=== PATIENT | male | born 1935 | race Caucasian/White ===

== ENCOUNTER 2018-12-08 10:39 | Emergency (ER) | payer MEDICARE ==
[~2018-12-08] VITALS: Ht 182.9 cm; Wt 85.3 kg
--- OUTSIDE RECORDS SUMMARY | 2018-12-08 10:41 | XMS REPORT | Summary of Care ---
Author Author [facility] Organization [facility] Address Unknown Phone Unavailable Care Team Providers Care Assistant Librarian Name Role Phone Salvatore Orantes PCP Encounter HQ Encntr_cassi(FIN) [id number] Date(s): 09/01/18 - 09/01/18 [facility] [address] [address]- [phone] Discharge Disposition: Home or Self Care Attending Physician: Blaine Diaz MD Vital Signs No data available for this section Problem List Condition Effective Dates Status Health Status Informant Hematuria(Confirmed) Active Cataract(Confirmed) Resolved Depression(Confirmed Resolved ) Diaphragmatic Resolved hernia(Confirmed) Gout(Confirmed) Resolved Hydronephrosis(Confi Active rmed) HTN Resolved (hypertension)(Confi rmed) Lymphoma(Confirmed) Active Sleep Resolved apnea(Confirmed) Allergies, Adverse Reactions, Alerts Substance Reaction Severity Status acetaminophen-codeine Active Medications ciprofloxacin 500 mg oral tablet 500 mg=1 tab, PO, Q12H, for UTI, X 3 day, # 6 tab, 0 Refill(s), Pharmacy: [id number] Start Date: 09/01/18 Stop Date: 09/04/18 Status: Ordered ketOROLAC 10 mg oral tablet 10 mg=1 tab, PO, TID, PRN Pain Score 4-6, X 2 day, # 6 tab, 0 Refill(s), Pharmac y: [email or web address] [id number] Start Date: 09/01/18 Stop Date: 09/03/18 Status: Completed Results No data available for this section Immunizations No data available for this section Procedures Procedure Date Related Diagnosis Body Site Status Cystourethroscopy, with removal of foreign 09/01/18 Completed body, calculus, or ureteral stent from urethra or bladder (separate procedure); simple Social History Social History Type Response Alcohol Current Smoking Status Never smoker; Exposure to Tobacco Smoke Unable to obtain; Cigarette Smoking Last 365 Days No; Reg Smoking Cessation Counseling No entered on: 09/01/18 Assessment and Plan No data available for this section
--- OUTSIDE RECORDS SUMMARY | 2018-12-08 10:41 | XMS REPORT | Summary of Care ---
Author Author [facility] Organization [facility] Address Unknown Phone Unavailable Care Team Providers Care Public Information Coordinator Name Role Phone Salvatore Orantes PCP Encounter HQ Encntr_alias(FIN) [id number] Date(s): 10/04/18 - 10/04/18 [facility] [address] [place] [address]- [phone] Discharge Disposition: Home or Self Care Attending Physician: Blaine Diaz MD Referring Physician: Blaine Diaz MD Vital Signs No data available for this section Problem List Condition Effective Dates Status Health Status Informant Hematuria(Confirmed) Active Cataract(Confirmed) Resolved Depression(Confirmed Resolved ) Diaphragmatic Resolved hernia(Confirmed) Gout(Confirmed) Resolved Hydronephrosis(Confi Active rmed) HTN Resolved (hypertension)(Confi rmed) Lymphoma(Confirmed) Active Sleep Resolved apnea(Confirmed) Allergies, Adverse Reactions, Alerts Substance Reaction Severity Status acetaminophen-codeine Active Medications No data available for this section Results No data available for this section Immunizations No data available for this section Procedures No data available for this section Social History Social History Type Response Alcohol Current Smoking Status Never smoker; Exposure to Tobacco Smoke Unable to obtain; Cigarette Smoking Last 365 Days No; Reg Smoking Cessation Counseling No entered on: 10/06/18 Assessment and Plan No data available for this section
--- OUTSIDE RECORDS SUMMARY | 2018-12-08 10:41 | XMS REPORT | Summary of Care ---
Author Author [facility] Organization [facility] U[facility] Address Unknown Phone Unavailable Care Team Providers Care Pyrotechnist Name Role Phone Salvatore Orantes PCP Encounter HQ Encntr_alias(FIN) [id number] Date(s): 09/01/18 - 09/01/18 [facility] U[facility] [address] [address]- [phone] Discharge Disposition: Home or Self Care Attending [...]
--- OUTSIDE RECORDS SUMMARY | 2018-12-08 10:41 | XMS REPORT | Continuity of Care Document ---
Author Author [facility] Address Unknown Phone Unavailable Care Team Providers Care Manager Of Customer Billing Name Role Phone [employer] Unavailable Unavailable Problems Problem Status Onset Date Classification Date Reported Comments Source N39.0=URINARY TRACT INFECTION, SITE NO Active 10/06/2018 [facility] N13.30 UNSPECIFIED HYDRONEPHROSIS Active 09/29/2018 [facility] DX: HEMATURIA Active 08/14/2018 [facility] Hematuria Active Problem 10/29/2018 [facility] Cataract Resolved Problem 10/29/2018 [facility] Depression Resolved Problem 10/29/2018 [facility] Diaphragmatic hernia Resolved Problem 10/29/2018 [facility] Gout Resolved Problem 10/29/2018 [facility] Hydronephrosis Active Problem 10/29/2018 [facility] HTN (Confirmed) Resolved Problem 10/29/2018 [facility] Lymphoma Active Problem 10/29/2018 [facility] Sleep apnea Resolved Problem 10/29/2018 [facility] Medications Medication Details Route Status Patient Instructions Ordering Provider Order Date Source nitrofurantoin macrocrystals-monohydrate 100 mg oral capsule (Macrobid) 100 mg=1 cap, PO, Q12H, X 3 day, # 6 cap, 0 Refill(s), Pharmacy: [facility] [id number] Active 10/06/2018 [facility] Ketorolac Tromethamine 10 MG Oral Tablet 10 mg=1 tab, PO, TID, PRN Pain Score 4-6, X 2 day, # 6 tab, 0 Refill(s), Pharmacy: [facility] [id number] No Longer Active 09/01/2018 [facility] ciprofloxacin 500 mg oral tablet 500 mg=1 tab, PO, Q12H, for UTI, X 3 day, # 6 tab, 0 Refill(s), Pharmacy: [facility] [id number] Active 09/01/2018 [facility] 24 HR mirabegron 25 MG Extended Release Tablet [Myrbetriq] =1 tab, PO, Daily, # 30 tab, Pharmacy: [facility] [id number] No Longer Active 08/01/2018 [facility] tamsulosin 0.4 mg oral capsule =1 cap, PO, Daily, # 30 unknown unit, Pharmacy: [facility] [id number] No Longer Active 06/20/2018 [facility] 24 HR mirabegron 25 MG Extended Release Tablet [Myrbetriq] =1 tab, PO, Daily, # 30 tab, [facility] [id number] No Longer Active 06/20/2018 [facility] 24 HR mirabegron 25 MG Extended Release Tablet [Myrbetriq] =1 tab, PO, Daily, # 30 tab, [facility] [address] No Longer Active 04/21/2018 [facility] tamsulosin 0.4 mg oral capsule See Instructions, # 30 unknown unit, TAKE 1 CAPSULE BY MOUTH EVERY DAY, [facility] [id number] No Longer Active 03/22/2018 [facility] 24 HR mirabegron 25 MG Extended Release Tablet [Myrbetriq] See Instructions, # 30 tab, TAKE 1 TABLET BY MOUTH EVERY DAY, Pharmacy: [facility] [address] No Longer Active 03/22/2018 [facility] Allergies, Adverse Reactions, Alerts Substance Category Reaction Severity Reaction type Status Date Reported Comments Source acetaminophen-codeine Assertion Drug allergy Active [facility] Immunizations No Data Provided for This Section Results No Data Provided for This Section Pathology Reports No Data Provided for This Section Diagnostic Reports Report Value Date Source Retroperitoneal Complete US PROCEDURE: RENAL ULTRASOUND INDICATION: Hydronephrosis COMPARISON: CT 08/18/2018 TECHNIQUE: Sonographic evaluation of the kidneys and urinary bladder was performed. FINDINGS: KIDNEYS: The right kidney measures 10.8 cm in length. Normal contour and parenchymal echogenicity. There is no nephrolithiasis, mass lesion or perinephric collection. Mild right hydronephrosis. Large 4.7 cm cyst upper pole right kidney. Adjacent 2.4 cm cyst mid to upper right kidney. The left kidney measures 9.5 cm in length. Normal contour and parenchymal echogenicity. There is no nephrolithiasis, mass lesion or perinephric collection. Mild hydronephrosis. Numerous cystic areas identified along the upper pole left kidney with septation. BLADDER: Bladder wall appears mildly thickened. The prostate is markedly enlarged measuring 5.6 x 5.3 x 5.3 cm. VASCULAR: The visualized abdominal aorta, IVC and proximal common iliac arteries are within normal limits. IMPRESSION: 1. Mild bilateral hydronephrosis similar to previous examination. 2. Numerous bilateral renal cysts. Cluster of multiple cysts in the upper pole the left kidney. SL: [id number] 10/27/2018 [facility] Retroperitoneal Complete US Retroperitoneal Complete US CLINICAL HISTORY: - N13.30 Unspecified hydronephrosis. COMPARISON: CT renal stone 08/18/2018 TECHNIQUE: Wilkes scale and color Doppler images of both kidneys were performed with a curvilinear transducer with standard technique. Static images are submitted for review. FINDINGS: KIDNEYS: The right kidney measures 10.9 x 5.4 x 6.4 cm and the left kidney measures 9.9 x 5.1 x 5.2 cm in the sagittal AP and transverse dimensions respectively. There is persistent moderate right hydronephrosis. Right ureteral stent extends from the right kidney to the urinary bladder. Approximately 4 cm cyst is visualized along the lower pole of right kidney. There is mild left hydronephrosis. Left ureteral stent is no longer visualized. Numerous moderate to large cysts are visualized in the left kidney similar in appearance to recent CT study. AORTA, Proximal ILLIAC Arteries \T\ IVC: Largely obscured due to bowel. Visualized segments are unremarkable. BLADDER: Bladder is partially distended with anechoic urine. Prostate gland is noted to be enlarged. ASCITES: No ascites noted. IMPRESSION: Persistent moderate right hydronephrosis. Right ureteral stent remains in place. Interval removal of left-sided stent. Mild left hydronephrosis. Multiple bilateral renal cysts, unchanged. Enlarged prostate. SL: [id number] 10/04/2018 [facility] Renal Stone CT EXAM: CT RENAL STONE CLINICAL INDICATION: 83 years old Male with - painful urination. TECHNIQUE: Noncontrasted helical imaging was performed from the kidneys through the symphysis as a renal stone protocol. Multiplanar reformations are available. CT imaging performed at this location utilizes radiation dose optimization techniques which include one or more of the following: -Automated exposure control -Adjustment of the mA and/or kV according to patient size -Use of iterative reconstruction technique CT Radiation Dose DLP 741 mGy-cm COMPARISON: None. FINDINGS: This examination is limited for the evaluation of solid organs and vascular structures due to withheld intravenous contrast -- the standard for urinary calculus assessment CT. LOWER CHEST: Calcified pleural plaques. Mild subpleural fibrotic changes in the lung bases. KIDNEYS: Several bilateral renal cysts noted, the largest measuring 4.8 cm on the right and 7.7 cm on the left. A few of the cysts demonstrate thin mural calcification. Moderate bilateral hydronephrosis is noted. Bilateral double-J ureteral stents are noted. The right proximal pigtail is noted in the right renal pelvis. The left proximal pigtail is noted in the left midpole calyx. The bilateral distal pigtails are noted in the bladder. Bilateral periureteral fat stranding noted. No renal mass or stone noted. SOLID ORGANS: No focal hepatic lesion or intrahepatic biliary ductal dilatation is seen. No calcified gallstone is noted. The spleen, pancreas, and adrenal glands are normal in non-enhanced appearance. BOWEL: Moderate hiatal hernia. The small bowel and colon are normal in caliber without wall thickening. A normal appendix is identified. PERITONEUM: No free intraperitoneal fluid or air. Mild nonspecific central mesenteric fat stranding. RETROPERITONEUM: The aorta is normal in caliber. Atherosclerotic calcifications throughout the aorta and branch vessels. Mild retroperitoneal soft tissue with adjacent fat stranding noted. PELVIS: Mild bladder wall thickening. Prostate is enlarged measuring 5.8 cm transverse. Small left hydrocele partially visualized. MUSCULOSKELETAL: No acute osseous abnormality is seen. No destructive lytic or blastic osseous lesion is noted. Degenerative changes in the spine. IMPRESSION: 1. Moderate bilateral hydronephrosis, possibly chronic, with bilateral double-J ureteral stents in place. No urinary calculus identified. Comparison with prior exams is suggested. 2. Several bilateral renal cysts. 3. Soft tissue with mild adjacent fat stranding noted in the aortocaval region. Additional central mesenteric fat stranding noted. 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 Again, comparison with prior exams is suggested. 4. Prostatomegaly. 5. Mild bladder wall thickening likely secondary to chronic outlet obstruction given prostatomegaly. 6. Moderate hiatal hernia. 7. Bilateral pleural plaques. SL: [id number] 08/18/2018 [facility] Consultation Notes No Data Provided for This Section Discharge Summaries No Data Provided for This Section History and Physicals No Data Provided for This Section Vital Signs Vital Sign Value Date Comments Source Height 182.88 cm 10/06/2018 [facility] Weight 89.091 10/06/2018 [facility] BMI Calculated 26.64 10/06/2018 [facility] Encounters Location Location Details Encounter Type Encounter Number Reason For Visit Attending Provider ADM Date DC Date Status Source [facility] Phone Message [id number] 03/22/2018 03/24/2018 [facility] Outpatient [id number] Blaine Emily 08/10/2018 Active [facility] Outpatient [id number] Blaine Emily 08/18/2018 08/19/2018 [facility] Outpatient [id number] Blainegrace Diaz 08/24/2018 Active [facility] Outpatient [id number] Blaine Emily 08/24/2018 08/25/2018 [facility] Outpatient [id number] Blainegrace Diaz 09/01/2018 Active [facility] Outpatient [id number] -[place] 09/01/2018 [facility] Outpatient [id number] Blaine Emily 09/01/2018 09/02/2018 [facility] Outpatient [id number] Blaine Emily 09/01/2018 09/02/2018 [facility] Outpatient [id number] Blainegrace Diaz 09/07/2018 Active [facility] Outpatient [id number] -[place] 09/07/2018 Active [facility] Ambulatory Pre-Reg [id number] Blainegrace Diaz 09/07/2018 09/07/2018 [facility] Ambulatory Pre-Reg [id number] 09/07/2018 09/07/2018 [facility] Outpatient [id number] Blainegrace Diaz 09/29/2018 Active [facility] Outpatient [id number] -[place] 09/29/[address] [facility] Outpatient [id number] Blainegrace Diaz 09/29/2018 09/30/2018 [facility] Outpatient [id number] Blaine Diaz 10/04/2018 10/05/2018 [facility] Outpatient [id number] Blaine Diaz 10/06/2018 Active [facility] Outpatient [id number] Blaine Diaz 10/06/2018 10/07/2018 [facility] Outpatient [id number] Blaine Diaz 10/23/2018 [facility] [id number] Baline Diaz 10/23/2018 10/23/2018 [facility] Outpatient [id number] Blaine Diaz 10/27/2018 10/28/2018 [facility] Procedures Procedure Code Date Perfomer Comments Source Cystourethroscopy, with removal of foreign body, calculus, or ureteral stent from urethra or bladder (separate procedure); simple 16918 10/06/2018 [facility] Cystourethroscopy, with removal of foreign body, calculus, or ureteral stent from urethra or bladder (separate procedure); simple 82979 09/01/2018 [facility] Assessment and Plan No Data Provided for This Section Plan of Care No Data Provided for This Section Social History Social History Date Source Social History TypeResponse Alcohol Current Smoking Status Never smoker; Exposure to Tobacco Smoke Unable to obtain; Cigarette Smoking Last 365 Days No; Reg Smoking Cessation Counseling No entered on: 10/06/18 08/07/2018 [facility] Social History TypeResponse Alcohol Current Smoking Status Never smoker; Exposure to Tobacco Smoke Unable to obtain; Cigarette Smoking Last 365 Days No; Reg Smoking Cessation Counseling No entered on: 10/06/18 08/07/2018 [facility] Family History No Data Provided for This Section Advance Directives No Data Provided for This Section Functional Status No Data Provided for This Section
--- OUTSIDE RECORDS SUMMARY | 2018-12-08 10:42 | XMS REPORT | Summary of Care ---
Author Author [facility] Organization [facility] Address Unknown Phone Unavailable Encounter HQ Neilr_cassi(FIN) [id number] Date(s): 08/18/18 - 08/18/[address] [facility] [address] [place] [address]- Discharge Disposition: Home or Self Care Attending Physician: Blaine Diaz MD Referring Physician: Blaine Diaz MD Vital Signs No data available for this section Problem List Condition Effective Dates Status Health Status Informant Hematuria(Confirmed) Active Cataract(Confirmed) Resolved Depression(Confirmed Resolved ) Diaphragmatic Resolved hernia(Confirmed) Gout(Confirmed) Resolved Hydronephrosis(Confi Resolved rmed) HTN Resolved (hypertension)(Confi rmed) Lymphoma(Confirmed) Active [...] Reg Smoking Cessation Counseling No entered on: 08/10/18 Assessment and Plan No data available for this section
--- OUTSIDE RECORDS SUMMARY | 2018-12-08 10:42 | XMS REPORT | Summary of Care ---
Author Author [facility] Organization [facility] Urology [facility] Address Unknown Phone Unavailable Care Team Providers Care Leasing Assistant Name Role Phone RolandaSalvatore PCP Encounter HQ Encntr_alias(FIN) [id number] Date(s): 09/07/18 - 09/07/18 [facility] Urology [address] [address]- [phone] Attending Physician: Blaine Diaz MD Vital Signs [...]
--- OUTSIDE RECORDS SUMMARY | 2018-12-08 10:42 | XMS REPORT | Summary of Care ---
Author Author [facility] Organization [facility] U[facility] Address Unknown Phone Unavailable Care Team Providers Care Machine Filler Shredder Name Role Phone Salvatore Orantes PCP Encounter HQ William_cassi(FIN) [id number] Date(s): 10/06/18 - 10/06/18 [facility] [address] [place] [address]- Discharge Disposition: Home or Self Care Attending Physician: Blaine Diaz MD Vital Signs Most recent to 1 oldest [Reference Range]: Height 182.88 cm (10/06/18 11:00 AM) Weight 89.091 kg (10/06/18 11:00 AM) Body Mass Index 26.64 m2 (10/06/18 11:00 AM) Problem List Condition Effective Dates Status Health Status Informant Hematuria(Confirmed) Active Cataract(Confirmed) Resolved Depression(Confirmed Resolved ) Diaphragmatic Resolved hernia(Confirmed) Gout(Confirmed) Resolved Hydronephrosis(Confi Active rmed) HTN Resolved (hypertension)(Confi rmed) Lymphoma(Confirmed) Active Sleep Resolved apnea(Confirmed) Allergies, Adverse Reactions, Alerts Substance Reaction Severity Status acetaminophen-codeine Active Medications nitrofurantoin macrocrystals-monohydrate 100 mg oral capsule (Macrobid) 100 mg=1 cap, PO, Q12H, X 3 day, # 6 cap, 0 Refill(s), Pharmacy: [facility] [id number] Start Date: 10/06/18 Stop Date: 10/09/18 Status: Ordered Results No data available for this section Immunizations No data available for this section Procedures Procedure Date Related Diagnosis Body Site Status Cystourethroscopy, with removal of foreign 10/06/18 Completed body, calculus, or ureteral stent from urethra or bladder (separate procedure); simple Social History Social History Type Response Alcohol Current Smoking Status Never smoker; Exposure to Tobacco Smoke Unable to obtain; Cigarette Smoking Last 365 Days No; Reg Smoking Cessation Counseling No entered on: 10/06/18 Assessment and Plan No data available for this section
--- OUTSIDE RECORDS SUMMARY | 2018-12-08 10:42 | XMS REPORT | Summary of Care ---
Author Author [facility] Organization [facility] U[facility] Address Unknown Phone Unavailable Care Team Providers Care Advisory Intern Name Role Phone Rolanda Salvatore Danyel PCP Encounter HQ Encntr_alias(FIN) [id number] Date(s): 10/23/18 - 10/23/18 [facility] [address] [place] [address]- Attending Physician: Blaine Diaz MD Vital Signs [...]
--- OUTSIDE RECORDS SUMMARY | 2018-12-08 10:42 | XMS REPORT | Summary of Care ---
Author Author [facility] Organization [facility] Address Unknown Phone Unavailable Care Team Providers Care Grade Setter Name Role Phone Salvatore Orantes PCP Encounter HQ Encntr_alias(FIN) [id number] Date(s): 09/07/18 - 09/07/18 [facility] [address] [address]- [phone] Vital Signs No data available for this [...]
--- OUTSIDE RECORDS SUMMARY | 2018-12-08 10:42 | XMS REPORT | Summary of Care ---
Author Author [facility] Organization [facility] Address Unknown Phone Unavailable Care Team Providers Care Ring Stamper Name Role Phone Salvatore Orantes PCP Encounter HQ Encntr_alias(FIN) [id number] Date(s): 09/29/18 - 09/29/18 [facility] [address] [place] [address] [phone] Discharge Disposition: Home or Self Care Attending [...]
--- OUTSIDE RECORDS SUMMARY | 2018-12-08 10:42 | XMS REPORT | Summary of Care ---
Author Author [facility] Organization [facility] Address Unknown Phone Unavailable Care Team Providers Care Grading Machine Feeder Name Role Phone Salvatore Orantes PCP Encounter HQ Encntr_alias(FIN) [id number] Date(s): 10/27/18 - 10/27/18 [facility] [address] [place] [address]- [phone] Discharge Disposition: Home or Self Care Attending [...]
--- OUTSIDE RECORDS SUMMARY | 2018-12-08 10:42 | XMS REPORT | Summary of Care ---
Author Author [facility] Organization [facility] Address Unknown Phone Unavailable Care Team Providers Care Story Writer Name Role Phone Salvatore Orantes PCP Encounter HQ Encntr_alias(FIN) [id number] Date(s): 10/12/18 - 10/12/18 [facility] [address] [place] [address]- [phone] Discharge Disposition: Home or Self Care Attending [...]
--- OUTSIDE RECORDS SUMMARY | 2018-12-08 10:42 | XMS REPORT ---
Author Author [facility] Address Unknown Phone Unavailable Care Team Providers Care Summer Nanny Name Role Phone Unavailable Unavailable Problems This patient has no known problems. Allergies, Adverse Reactions, Alerts This patient has no known allergies or adverse reactions. Medications This patient has no known medications. Encounters Start Date/Time End Date/Time Encounter Type Admission Type Attending [facility] Care Facility Care Department Encounter ID 2018-10-27 10:09:00 2018-10-27 10:09:00 Outpatient [facility] [id number] 2018-10-04 10:03:00 2018-10-04 10:03:00 Outpatient [facility] [id number] 2018-08-18 10:55:00 2018-08-18 10:55:00 Outpatient [id number]
--- OUTSIDE RECORDS SUMMARY | 2018-12-08 10:42 | XMS REPORT | Summary of Care ---
Author Author [facility] Organization [facility] Address Unknown Phone Unavailable Encounter KATTY Delgadillo(FIN) [id number] Date(s): 08/24/18 - 08/24/18 [facility] [address] [phone]- [phone] Discharge Disposition: Home or Self Care Attending [...] Reaction Severity Status acetaminophen-codeine Active Medications No Known Medications Results No data available for this section Immunizations No data available for this section Procedures No data available for this section Social History Social History Type Response Alcohol Current Smoking Status Never smoker; Exposure to Tobacco Smoke Unable to obtain; Cigarette Smoking Last 365 Days No; Reg Smoking Cessation Counseling No entered on: 08/24/18 Assessment and Plan No data available for this section
--- OUTSIDE RECORDS SUMMARY | 2018-12-08 10:42 | XMS REPORT | Summary of Care ---
Author Author [facility] Organization [facility] Address Unknown Phone Unavailable Care Team Providers Care Service Crew Supervisor Name Role Phone Salvatore Orantes PCP Encounter [facility] William_cassi(FIN) [id number] Date(s): 03/22/18 - 03/23/18 [facility] [address] [place] [address]- Vital Signs No data available for this section Problem List Condition Effective Dates Status Health Status Informant Hematuria(Confirmed) Active Cataract(Confirmed) Resolved Depression(Confirmed Resolved ) Diaphragmatic Resolved hernia(Confirmed) Gout(Confirmed) Resolved Hydronephrosis(Confi Active rmed) HTN Resolved (hypertension)(Confi rmed) Lymphoma(Confirmed) Active Sleep Resolved apnea(Confirmed) Allergies, Adverse Reactions, Alerts Substance Reaction Severity Status acetaminophen-codeine Active Medications Myrbetriq 25 mg oral tablet, extended release =1 tab, PO, Daily, # 30 tab, Pharmacy: [facility] ([facility] [id number] Start Date: 06/20/18 Stop Date: 08/01/18 Status: Completed Myrbetriq 25 mg oral tablet, extended release =1 tab, PO, Daily, # 30 tab, Pharmacy: [facility] ([facility] [id number] Start Date: 08/01/18 Stop Date: 08/10/18 Status: Discontinued Myrbetriq 25 mg oral tablet, extended release =1 tab, PO, Daily, # 30 tab, Pharmacy: [facility] ([facility] [id number] Start Date: 04/21/18 Stop Date: 06/20/18 Status: Completed Myrbetriq 25 mg oral tablet, extended release See Instructions, # 30 tab, TAKE 1 TABLET BY MOUTH EVERY DAY, Pharmacy: [facility] [id number] Start Date: 03/22/18 Stop Date: 04/21/18 Status: Completed tamsulosin 0.4 mg oral capsule =1 cap, PO, Daily, # 30 unknown unit, Pharmacy: [facility] ([facility] [id number] Start Date: 06/20/18 Stop Date: 08/10/18 Status: Discontinued tamsulosin 0.4 mg oral capsule See Instructions, # 30 unknown unit, TAKE 1 CAPSULE BY MOUTH EVERY DAY, Pharmacy : [facility] ([facility] [id number] Start Date: 03/22/18 Stop Date: 06/20/18 Status: Completed Results No data available for [...]
[2018-12-08] MEDS ORDERED: TETANUS/DIPHTHERIA TOX ADULT 0.5 ML SYR IM ONE (11:30)
--- NOTE | 2018-12-08 11:42 | Diagnostic Imaging Report ---
EXAMINATION: FOOT 2VIEW RT - HOPD INDICATION: Trauma COMPARISON: None FINDINGS: 2 views of the right foot demonstrate no acute fracture or dislocation. In the plantar soft tissues overlying the third MTP joint, there is a 6 mm linear subtly radiopaque structure likely corresponding with a glass fragment given history of stepping on glass. Mild scattered degenerative changes. Mild Achilles enthesopathy. Prominent plantar calcaneal spur. No ankle joint effusion. Small corticated ossific fragments at the base of the fifth metatarsal likely related to remote injury. IMPRESSION: Foreign body fragment at the plantar soft tissues likely overlying the third MTP joint likely represents glass fragment given provided history. Signed by: Ben Veliz MD on 12/08/2018 11:39 AM
[2018-12-08] MEDS ORDERED: LIDOCAINE HCL 2% LOCAL 20 ML VIAL INJ ONE (12:00)
[2018-12-08] MEDS ORDERED: LIDOCAINE HCL 1% LOCAL INJ 20 ML VIAL ONE (12:04)
[2018-12-08] MEDS ORDERED: TETANUS/DIPHTHERIA TOX ADULT 0.5 ML SYR ONE (12:04)
[2018-12-08 12:21] VITALS: BP 147/72
== END 2018-12-08 12:24 | disposition home or self-care (01) ==
LOC: FSED 10:39
DX: S91.341A Puncture wound with foreign body, right foot, initial encounter (principal); W25.XXXA Contact with sharp glass, initial encounter; Y93.89 Activity, other specified; Z23 Encounter for immunization
CPT/HCPCS: 28190; 73620; 90471; 90714; 99283; J2001